=== PATIENT | female | born 2005 | race Two or more races ===

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

== ENCOUNTER 2025-06-09 09:31 | Emergency (ER) | payer MEDICAID, SELFPAY ==
[2025-06-09] VITALS (12 sets, daily range): BP systolic 96–136; BP diastolic 66–95; PULSE 90–152; RESP 16–22; TEMP 36.6–38.1; O2SAT 96–100; BMI 21.6
--- NOTE | 2025-06-09 09:40 | PD.EDURI ---
Upper Respiratory Inf. RME/HPI General Chief Complaint: Flu Like Symptoms Stated Complaint: FEVER, COUGH, SOB Time Seen by Provider: 06/09/25 09:50 Arrival date/time: 06/09/25 09:31 RME / HPI RME / HPI Narrative: See MDM for Dr. Kumar's HPI Documentation. Related Data Previous Rx's ?Medication ?Instructions ?Recorded cephalexin 500 mg tablet 500 mg PO BID #20 tabs 08/26/19 acetaminophen 325 mg capsule 650 mg (2 x 325 mg) PO Q6H PRN 05/01/20 pain #30 caps ibuprofen 400 mg tablet 400 mg PO Q8H #30 tabs 05/01/20 acetaminophen 300 mg-codeine 30 mg 2 tab PO Q8H PRN pain #20 tabs 06/09/25 tablet albuterol sulfate 90 mcg/actuation 2 puff inhalation Q6H PRN 06/09/25 aerosol inhaler shortness of breath or wheezing #8.5 grams azithromycin 500 mg tablet 500 mg PO QDAY 3 days #3 tabs 06/09/25 (Zithromax TRI-EMILY) cefdinir 300 mg capsule 300 mg PO BID #14 caps 06/09/25 prednisone 20 mg tablet 20 mg PO BID 3 days #6 tabs 06/09/25 Allergies Allergy/AdvReac Type Severity Reaction Status Date / Time No Known Allergies Allergy Verified 05/01/20 16:38 Review of Systems Review of Systems Systems Reviewed: All systems reviewed, normal except as documented ED Exam Narrative Physical exam: See [facility] for Dr. Kumar's Physical Exam Documentation. Course Quality Measures none Orders Category Date Time Status Bedside COVID-19 Antigen Test NOW Care 06/09/25 10:23 Completed Bedside Influenza A&B Antigen Test NOW Care 06/09/25 10:[address] Screening NOW Care 06/09/25 12:21 Completed Saline [Insert IV] NOW Care 06/09/25 09:[address] angio chest Stat Exams 06/09/25 12:21 Completed XR chest 1V portable Stat Exams 06/09/25 09:48 Completed BNP [B-Type Natriuretic Peptide] Stat Lab 06/09/25 10:15 Completed Bilirubin,Direct Stat Lab 06/09/25 10:15 Completed CBC Stat Lab 06/09/25 10:15 Completed CMP [Comprehensive Metabolic Panel] Stat Lab 06/09/25 10:15 Completed Cocci Serology IgM with reflex to IgG [Cocci Serology, Lab 06/09/25 13:04 Completed Unk History] Stat Cocci Serology, IgG Stat Lab 06/09/25 13:04 Completed D-Dimer Stat Lab 06/09/25 10:15 Completed HCG Qualitative,Urine Stat Lab 06/09/25 11:55 Completed Lactate (Lactic Acid) Stat Lab 06/09/25 10:15 Completed Magnesium Stat Lab 06/09/25 10:15 Completed Procalcitonin Stat Lab 06/09/25 10:15 Completed TSH [Thyroid Stimulating Hormone] Stat Lab 06/09/25 10:15 Completed Troponin I Stat Lab 06/09/25 10:15 Completed UA, C/S IF [Urinalysis, C/S if Indicated] Stat Lab 06/09/25 11:55 Completed ACETAMINOPHEN w/COD 300-30 [Tylenol w/Cod #3] Med 06/09/25 12:03 Discontinued 2 tab PO X1 ONE Acetaminophen Tab [Tylenol ES Tab] Med 06/09/25 09:47 Discontinued 1,000 mg PO X1 ONE Azithromycin Po [Zithromax PO] Med 06/09/25 11:41 Discontinued 500 mg PO X1 ONE Ketorolac Inj [Toradol Inj] Med 06/09/25 09:47 Discontinued 30 mg IVP X1 ONE Levalbuterol Rt [Xopenex Rt Trang] Med 06/09/25 09:48 Discontinued 2.5 mg INH X1 ONE MethylPREDNISolone.* [SoluMEDROL Inj] Med 06/09/25 09:48 Discontinued 125 mg IVP X1 ONE POTASSIUM CHL 10% Liq 15 ML Med 06/09/25 11:41 Discontinued 40 meq PO X1 ONE Ringers Lactated 1000 ml [Lactated Ringers] 1,000 ml Med 06/09/25 09:47 Discontinued IV 1,000 mls/hr Sodium Chloride Rt Trang 0.9% [NS Rt Trang 0.9%] Med 06/09/25 09:48 Discontinued 3 ml INH PRN PRN cefTRIAXone/D5w 1gm IV premix [Rocephin/D5w 1gm IV Med 06/09/25 11:41 Discontinued premix] 1 gm in 50 ml IV X1 Vital Signs Vital signs: Vital Signs Temperature 99.6 F 06/09/25 09:41 Pulse Rate 152 H 06/09/25 09:41 Respiratory Rate 20 06/09/25 09:41 Blood Pressure 136/93 H 06/09/25 09:41 Pulse Oximetry (%) 99 06/09/25 09:41 Oxygen Delivery Method Room Air 06/09/25 09:41 Upper Respiratory Infection MDM Narrative MDM Narrative:: This section includes all my notes and documentations, including HPI, PE, and ED course. Hair Kumar MD HPI: 19 y/o female here with about a week history of worsening cough, productive cough, purulent sputum, and dyspnea. No other complaints. ROS: All negative except as documented in HPI. Physical Exam: General: Alert and oriented. Hacking cough noted. Fever noted. Eyes: Conjunctivae and lids clear. ENT: No nasal congestion. Pharynx normal. TM normal bilaterally. Neck: Supple. Heart: RRR. Lungs: No respiratory distress. Decreased air movement with diffuse rhonchi. Abdomen: Soft and nontender. Normal bowel sounds. No distension. No rebound or guarding. Back: No CVA tenderness. Skin: Warm and dry. Neuro: Alert and oriented X 3. I reviewed all diagnostic test results: My interpretation of the chest x-ray is infiltrates. My review of the chest CT report is left-sided pneumonia. Blood tests and urine tests unremarkable, except K 2.9. Covid/Influenza negative. At this point, diagnoses include: Pneumonia Treatment here included: IVF Toradol 30 mg IV Tylenol 1000 mg PO Xopenex 2.5 mg neb treatment Solu-Medrol injection 5 mg IV Zithromax 500 mg PO Rocephin 1 g IV Oral KCl 40 mEq Two Tylenol #3 Significant improvement noted. Recommended a trial of outpatient treatment. Based on my best medical judgment, made decision no further evaluation or treatment indicated at this time. Patient understands and agrees to the discharge instructions customized and printed, see below. Discharge instructions from Dr. Kumar: -- No physical exertion for 3 days to help rest the lungs. -- No smoking or exposure to smoking or pets or dust or cold or humidity. -- Zithromax and cefdinir to kill the germs causing the pneumonia. -- Prednisone to help decrease the swelling in the airways. -- Albuterol 2 puffs every 4-6 hours today and tomorrow SCHEDULED to help keep the airways open. Then as needed for cough or shortness of breath. -- Tylenol with codeine (one or two pills at a time) for severe cough. -- Ibuprofen and regular Tylenol for fever. -- For good hydration, increase oral fluid and maintain clear urine. If dark or yellow, increase oral fluid. Your body needs extra fluid when you are sick, especially with fever. -- See a private doctor on 06/11/2025 for recheck. Ask for help until you are completely better. Ask to recheck your potassium level which was low today. Try to eat a banana daily. -- Seek immediate medical care with worsening or with any concerns. Hair Kumar MD Patient data External records reviewed:: [facility] previous records (No recent ED records available for review.) Clinical information provided by:: patient Social determinants that could affect healthcare access:: none Patient has the following chronic illnesses:: None reported How is presenting disease/condition affected by chronic disease/condition?: no chronic disease Evaluation data The following diagnostics were reviewed and interpreted by me:: lab results and radiology exam(s) Lab and/or radiology exams considered but not ordered:: None Interpretation Summary: I reviewed all diagnostic test results: My interpretation of the chest x-ray is infiltrates. My review of the chest CT report is left-sided pneumonia. Blood tests and urine tests unremarkable, except K 2.9. Covid/Influenza negative. Medications / Prescriptions Medications or Prescriptions considered but not ordered:: None Medication administrations:: Medication Administration History Discontinued Medications Acetaminophen (Acetaminophen 500 Mg Tablet) 1,000 mg PO X1 ONE Stop: 06/09/25 09:48 Last Admin: 06/09/25 10:15 Dose: 1,000 mg Documented By: DO Acetaminophen/Codeine Phosphate (Acetaminophen W/Cod 300-30 Tablet) 2 tab PO X1 ONE Stop: 06/09/25 12:04 Last Admin: 06/09/25 12:37 Dose: 2 tab Documented By: DO Azithromycin (Azithromycin 250 Mg Tablet) 500 mg PO X1 ONE Stop: 06/09/25 11:42 Last Admin: 06/09/25 12:37 Dose: 500 mg Documented By: DO Lactated Ringer's (Lactated Ringers) 1,000 mls @ 1,000 mls/hr IV .Q1H ONE Stop: 06/09/25 10:46 Last Infusion: 06/09/25 12:14 Dose: Infused Documented By: Admin: 06/09/25 10:17 Dose: 1,000 mls/hr Documented By: DO Ceftriaxone Sodium/Dextrose (Rocephin/D5w 1gm Iv Premix) 1 gm in 50 mls @ 100 mls/hr IV X1 ONE Stop: 06/09/25 12:10 Last Infusion: 06/09/25 13:15 Dose: Infused Documented By: Admin: 06/09/25 12:39 Dose: 100 mls/hr Documented By: DO Ketorolac Tromethamine (Ketorolac Inj 30 Mg/Ml Vial) 30 mg IVP X1 ONE Stop: 06/09/25 09:48 Last Admin: 06/09/25 10:18 Dose: 30 mg Documented By: Levalbuterol HCl (Levalbuterol Rt 1.25 Mg/0.5 Ml Nebu) 2.5 mg INH X1 ONE Stop: 06/09/25 09:49 Last Admin: 06/09/25 10:21 Dose: 2.5 mg Documented By: VENESSA Methylprednisolone Sodium Succinate (Methylprednisolone Sod Succ 62.5 Mg/Ml 2ml Vial) 125 mg IVP X1 ONE Stop: 06/09/25 09:49 Last Admin: 06/09/25 10:16 Dose: 125 mg Documented By: DO Potassium Chloride (Potassium Chloride 10% 20 Meq/15 Ml Udc) 40 meq PO X1 ONE Stop: 06/09/25 11:42 Last Admin: 06/09/25 12:40 Dose: 40 meq Documented By: DO Sodium Chloride (Sodium Chloride Rt Trang 0.9% 3 Ml Nebu) 3 ml INH PRN PRN PRN Reason: SOLN Stop: 07/09/25 09:47 Treatment here included: IVF Toradol 30 mg IV Tylenol 1000 mg PO Xopenex 2.5 mg neb treatment Solu-Medrol injection 5 mg IV Zithromax 500 mg PO Rocephin 1 g IV Oral KCl 40 mEq Two Tylenol #3 Consultations Consultation(s) initiated? (list below): No Diagnosis Upper Respiratory Differential Diagnosis: upper respiratory infection, croup, otitis media, sinusitis, viral infection, bronchitis, influenza and pharyngitis Most likely diagnosis given after review of the tests above:: Pneumonia Admission Indicated Admission indicated?: not indicated Explain why admission is indicated or not indicated:: With significant improvement and no condition needing emergent intervention, there was no indication for admission. Admission Request Was there a request for admission?: No Disposition Plan Disposition Plan: Discharge Discharge Attestation Discharge Attestation: The patient and all family members were given an opportunity to ask questions and understood the discharge instructions. Discharge instructions specifically effects, indications for sooner follow up or return to the emergency department, and the expected course of current diagnosis. Patient condition: Stable Discharge Plan Plan Patient Disposition: HOME (Self Care) Prescriptions/Referrals Prescriptions/Med Rec: New prednisone 20 mg tablet 20 mg PO BID 3 Days Qty: 6 0RF Taper: Prednisone Taper 20 mg DAILY for 2 Days and 0 Hour 10 mg DAILY for 2 Days and 0 Hour 5 mg DAILY for 7 Days and 0 Hour acetaminophen-codeine 300-30 mg tablet 2 tab PO Q8H MDD 6 PRN (Reason: pain) Qty: 20 0RF albuterol sulfate 90 mcg/actuation HFA aerosol inhaler 2 puff inhalation Q6H PRN (Reason: shortness of breath or wheezing) Qty: 8.5 0RF cefdinir 300 mg capsule 300 mg PO BID Qty: 14 0RF azithromycin [Zithromax TRI-EMILY] 500 mg tablet 500 mg PO QDAY 3 Days Qty: 3 0RF No Action cephalexin 500 mg tablet 500 mg PO BID Qty: 20 0RF acetaminophen 325 mg capsule 650 mg PO Q6H PRN (Reason: pain) Qty: 30 0RF ibuprofen 400 mg tablet 400 mg PO Q8H Qty: 30 0RF Referrals: Rochelle Yanes PA-C [Primary Care Provider] - In 1 week Problem List Clinical Impression: Pneumonia Patient/Caregiver Discharge Instructions Discharge Activity: activity as tolerated Education Materials: ED Pneumonia (Adult) Additional Instructions: Discharge instructions from Dr. Kumar: -- No physical exertion for 3 days to help rest the lungs. -- No smoking or exposure to smoking or pets or dust or cold or humidity. -- Zithromax and cefdinir to kill the germs causing the pneumonia. -- Prednisone to help decrease the swelling in the airways. -- Albuterol 2 puffs every 4-6 hours today and tomorrow SCHEDULED to help keep the airways open. Then as needed for cough or shortness of breath. -- Tylenol with codeine (one or two pills at a time) for severe cough. -- Ibuprofen and regular Tylenol for fever. -- For good hydration, increase oral fluid and maintain clear urine. If dark or yellow, increase oral fluid. Your body needs extra fluid when you are sick, especially with fever. -- See a private doctor on 06/11/2025 for recheck. Ask for help until you are completely better. Ask to recheck your potassium level which was low today. Try to eat a banana daily. -- Seek immediate medical care with worsening or with any concerns. Print Language: Romansh Stand Alone Forms: Mia Award Info., Patient Portal Info Letter
--- NOTE | 2025-06-09 09:48 | XR_ITS ---
EXAMINATION: AP chest single view TECHNIQUE: AP portable upright chest single view Date and time: June 09, 2025, 1003 hours, comparison May 01, 2020 INDICATIONS: Coughing fever today. FINDINGS: Significant pneumonia in the left lower lung zone Normal heart size. Right lung clear. Intact osseous structures. IMPRESSION: Significant pneumonia in the left lower lung zone
[2025-06-09] MEDS: ACETAMINOPHEN 500 MG TABLET 1000 MG PO (10:15)
[2025-06-09] MEDS: MethylPREDNISolone SOD SUCC 62.5 MG/ML 2ML VIAL 125 MG IVP (10:16)
[2025-06-09] MEDS: RINGERS LACTATED 1000 ML 1,000 ML IV (10:17)
[2025-06-09] MEDS: KETOROLAC INJ 30 MG/ML VIAL IVP (10:18)
[2025-06-09] MEDS: LEVALBUTEROL RT 1.25 MG/0.5 ML NEBU 2.5 MG INH (10:21)
[2025-06-09 10:45] LABS: Basophils # (Auto) 0.0 Thou/mm3 (0.0-0.2); Basophils % (Auto) 0 % (0-2.5); Eosinophils # (Auto) 0.0 Thou/mm3 (0.0-0.5); Eosinophils % (Auto) 0 % (0-10); Hematocrit 34.1 % (36.0-46.0); Hemoglobin 11.2 g/dL (12.0-16.0); Immature Granulocytes Auto 0.01 Thou/mm3 (0.00-0.00); Lactate (Lactic Acid) 1.1 mMol/L (0.4-2.0); Lymphocytes # (Auto) 0.8 Thou/mm3 (1.0-4.8); Lymphocytes % (Auto) 20 % (10-50); Mean Corpuscular HGB Conc 32.8 g/dl (31.0-37.0); Mean Corpuscular Hemoglobin 23.0 pg (25.0-35.0); Mean Corpuscular Volume 70 fL (80-100); Monocytes # (Auto) 0.3 Thou/mm3 (0.0-0.8); Monocytes % (Auto) 7 % (0-12); Neutrophils # (Auto) 3.0 Thou/mm3 (1.8-7.7); Neutrophils % (Auto) 72 % (37-80); Nucleated Red Blood Cell # 0.00 Thou/mm3 (0.00-0.00); Nucleated Red Blood Cell % 0 /100 WBC (0); Platelet Count 232 Thou/mm3 (140-440); RDW Standard Deviation 34.1 fL (36.4-46.3); Red Blood Count 4.88 Miln/mm3 (4.00-5.20); White Blood Count 4.2 Thou/mm3 (3.6-11.0)
[2025-06-09 11:21] LABS: D-Dimer 970 ng/mL (<600)
[2025-06-09 11:23] LABS: Alanine Aminotransferase 24 U/L (10-49); Albumin, Serum 4.9 gm/dL (3.5-5.0); Albumin/Globulin Ratio 1.5 (1.2-2.2); Alkaline Phosphatase 121 U/L (46-116); Anion Gap 12 (7-16); Aspartate Amino Transferase 33 U/L (0-34); BUN/Creatinine Ratio 7 Ratio (12-20); Bilirubin,Direct 0.2 mg/dL (0.0-0.3); Bilirubin,Total 0.5 mg/dL (0.3-1.2); Blood Urea Nitrogen < 5 mg/dL (9-23); Calcium 9.1 mg/dL (8.3-10.6); Calcium (Corrected) 9.1 mg/dL (8.5-10.1); Carbon Dioxide 25.8 mMol/L (20.0-31.0); Chloride 102 mMol/L (98-107); Creatinine (Component) 0.7 mg/dL (0.6-1.3); Estimated Creatinine Clearance 77.5 mL/min (>60); Globulin 3.2 gm/dL (2.3-3.5); Glucose 102 mg/dL (74-106); Magnesium 1.9 mg/dL (1.6-2.6); Osmolality,Calculated 276 (275-295); Potassium 2.9 mMol/L (3.4-5.1); Procalcitonin 0.12 ng/ml (0.0-0.49); Sodium 140 mMol/L (136-145); Thyroid Stimulating Hormone 1.61 uIU/mL (0.55-4.78); Total Protein 8.1 gm/dL (5.7-8.2); Troponin I < 0.002 ng/mL (0.0-0.045); eGFR > 60 See Note
[2025-06-09 11:40] LABS: B-Type Natriuretic Peptide < 20 pg/mL (0-100)
[2025-06-09 11:59] LABS: Collection Type, Urine Clean Catch
--- NOTE | 2025-06-09 12:21 | XR_ITS ---
Examination: CTA chest with intravenous contrast 2-D reconstructions 3-D reconstructions, vascular Date and time of exam: June 09, 2025, 1340 hours INDICATIONS: Tachycardia chest pain shortness of breath bloody sputum today, clinical diagnosis pulmonary emboli CTDI: vol (mGy) 8.41 DLP: (mGycm) 193 Technique: Multiple axial sections of the thorax have been obtained. 3 mm slice thickness, from below the hemidiaphragms to above the apices of the lungs. Mediastinal and lung density settings have been obtained. 2-D sagittal and coronal reconstructions. 3-D angiographic renderings, 3-D volume renderings, 3D post processing, vascular maximum intensity projections obtained. Contrast administered is 100 cc Isovue-370. Low dose protocols were performed. One or more of the following dose reduction techniques were used; automated exposure control, adjustment of the mA and/or KV according to patient size, use of iterative reconstruction technique. Findings: No thoracic aortic aneurysmal dilatation or dissection No pulmonary artery filling defects Prominent pneumonia left lower lobe No pleural disease No visualized liver or splenic lesion No gallstones noted No pancreatic mass Kidneys partially visualized no hydronephrosis Osseous structures intact IMPRESSION: Negative for pulmonary artery emboli Prominent left lower lobe pneumonia
[2025-06-09 12:36] LABS: HCG Qualitative,Urine Negative
[2025-06-09] MEDS: ACETAMINOPHEN w/COD 300-30 TABLET 2 TAB PO (12:37)
[2025-06-09] MEDS: AZITHROMYCIN 250 MG TABLET 500 MG PO (12:37)
[2025-06-09] MEDS: cefTRIAXone/D5w 1gm IV premix 1 GM/50 ML BAG IV (12:39)
[2025-06-09] MEDS: POTASSIUM CHLORIDE 10% 20 MEQ/15 ML UDC 40 MEQ PO (12:40)
[2025-06-09 12:44] LABS: Bacteria,Urine Rare; Bilirubin,Urine Negative (Negative); Blood,Urine 3+ (Negative); Clarity,Urine Clear (Clear/Hazy); Culture Indicated,Urine Not Indicated; Glucose, Urine Negative (Negative); Ketones,Urine 1+ (Negative); Leukocyte Esterase,Urine Negative (Negative); Nitrite,Urine Negative (Negative); PH,Urine 6.5 (5.0-7.0); Protein,Urine Trace (Neg - Trace); RBC,Urine 9 /hpf (0-3); Specific Gravity,Urine 1.003 (1.001-1.035); Squamous Epithelial Cell,Urine 2 /hpf (0-5); Urobilinogen,Urine Negative mg/dL (0.0-1.0); WBC,Urine 1 /hpf (0-5)
[2025-06-09 12:46] LABS: Color,Urine Lt-Yellow (Lt Yel-Yel)
[2025-06-09 15:42] LABS: Cocci Serology, IgM Negative (Negative)
[2025-06-11 14:10] LABS: Cocci Serology, IgG Negative (Negative)
== END 2025-06-09 15:39 | disposition home or self-care (01) ==
PROVIDERS: Emergency Provider Emergency Medicine; PCP Physician Assistant
DX: J18.9 Pneumonia, unspecified organism (principal)
CPT/HCPCS: 36415; 71045; 71275; 80053; 81001; 81025; 82248; 83605; 83735; 83880; 84145; 84443; 84484; 85025; 85379; 86331; 86635; 87502; 87635; 94640; 96361; 96365; 96375; 99284; A4649; J0696; J1885; J2919; J7120; J7612; Q9967; A9270